=== PATIENT | male | born 1990 | race Caucasian/White ===

== ENCOUNTER 2022-07-06 09:09 | Emergency (ER) | payer OTHER ==
[2022-07-06] MEDS ORDERED: Ondansetron 4 MG Tab.DIS PO ONE (09:40)
[2022-07-06] MEDS ORDERED: Ketorolac 30 MG/ML SDV IM ONE (09:40)
[2022-07-06 10:18] LABS: ESTIMATED GFR 83 mL/min (>60); TROPONIN I HIGH SENSITIVITY 4.7 pg/mL (<=60.3)
[2022-07-06] MEDS ORDERED: fentaNYL 100 MCG/2 ML SDV IVPUSH ONE (10:35)
[2022-07-06] MEDS ORDERED: Iopamidol 612 MG/ML 100 ML Bottle IV PRN (10:41)
[2022-07-06] MEDS ORDERED: Sodium Chloride 0.9% 100 ML IV SCH (10:45)
[2022-07-06] MEDS ORDERED: HYDROmorphone 1 MG/ML Syringe IVPUSH ONE (12:22)
== END 2022-07-06 13:41 | disposition home or self-care (01) ==
LOC: JP.ED 09:09
DX: K52.9 Noninfective gastroenteritis and colitis, unspecified (principal)
CPT/HCPCS: 36415; 74018; 74177; 80053; 81001; 83605; 83690; 84484; 85025; 96372; 96374; 96375; 99284; J1170; J1885; J3010; J3490; Q0162; Q9967